=== PATIENT | male | born 2005 | race Hispanic/Latino ===

== ENCOUNTER 2024-06-06 21:44 | Emergency (ER) | payer SELFPAY ==
[~2024-06-06] VITALS: Ht 162.6 cm; Wt 62.0 kg
[2024-06-06 22:00] VITALS: BP 121/54
[2024-06-06] MEDS ORDERED: DOXYCYCLINE HYCLATE 100 MG/CAP PO ONE (22:35)
[2024-06-06] MEDS ORDERED: DICLOFENAC SODIUM 75 MG/TAB PO ONE (22:35)
[2024-06-06] MEDS ORDERED: VIBRAMYCIN100 M2 PO (22:39)
[2024-06-06] MEDS ORDERED: traMADol HCL 50 MG/TAB PO ONE (22:40)
== END 2024-06-06 23:07 | disposition home or self-care (01) | DRG 728 ==
LOC: ED 21:44
DX: N45.1 Epididymitis (principal)

== ENCOUNTER 2024-06-10 13:51 | Observation (INO) | payer SELFPAY ==
[2024-06-10] VITALS (16 sets, daily range): BP systolic 110–134; BP diastolic 47–65
[~2024-06-10] VITALS: Ht 162.6 cm; Wt 54.0 kg
[~2024-06-10 13:51] MED LIST: VIBRAMYCIN100 M2 PO
--- NOTE | 2024-06-10 14:01 | NUR ---
PT WALKED BACK TO ER TRIAGE ROOM, PT PLACED BACK IN THE LOBBY UNTIL A ROOM BECOMES AVAILABLE
[2024-06-10] MEDS ORDERED: LIDOcaine HCl 1% (Local Anesth.) 20 ML VIAL IM STA (14:18)
[2024-06-10] MEDS ORDERED: SODIUM CHLORIDE 0.9% 1,000 ML IV ONE (14:20)
[2024-06-10] MEDS ORDERED: KETOROLAC TROMETHAMINE 30 MG/ML SDV IV ONE (14:20)
[2024-06-10] MEDS ORDERED: ONDANSETRON HCl 4 MG/2 ML SDV IV ONE (14:20)
[2024-06-10] MEDS ORDERED: MORPHINE SULFATE 4 MG/ML VIAL IV ONE (14:20)
[2024-06-10] MEDS ORDERED: cefTRIAXone SODIUM 1 GM/VIAL SDV IM ONE (14:20)
[2024-06-10] MEDS ORDERED: AZITHROMYCIN 250 MG/TAB PO ONE (14:25)
[2024-06-10 14:44] LABS: BASO% 0.6 % (0-3); EOS% 0.9 % (0-8); HEMATOCRIT 47.9 % (39.0-50.0); HEMOGLOBIN 16.3 g/dl (14.0-18.0); IMMATURE GRANULOCYTES 0.2 % (0.0-5.0); LYMPH% 22.9 % (15-41); MEAN CELL VOLUME 86.9 fL CALC (80.0-100.0); MEAN CORPUSCULAR HGB 29.6 pG CALC (26.0-32.0); MONO% 9.1 % (2-13); NEUT# 6.84 thou/uL (1.82-7.42); NEUT% 66.3 % (42-76); RED BLOOD COUNT 5.51 mill/uL (4.70-6.10)
[2024-06-10 14:51] LABS: ALBUMIN 5.4 g/dL (3.2-5.0); BILIRUBIN, TOTAL 0.9 mg/dL (0.2-1.3); CREATININE 0.9 mg/dL (0.7-1.3); POTASSIUM 3.7 mmol/l (3.5-5.1); TOTAL PROTEIN 9.3 g/dL (6.3-8.2)
[2024-06-10] MEDS ORDERED: LACTATED RINGER'S 1,000 ML BAG IV ONE (14:55)
[2024-06-10] MEDS ORDERED: PROPOFOL 200 MG/20 ML VIAL IV ONE (14:55)
[2024-06-10] MEDS ORDERED: GLYCOPYRROLATE 0.2 MG/ML IV ONE (14:55)
[2024-06-10] MEDS ORDERED: MIDAZOLAM HCL 2 MG/2 ML VIAL IV ONE (14:55)
[2024-06-10] MEDS ORDERED: LIDOCAINE HCL 2% 2ML SDV IV ONE (14:55)
[2024-06-10] MEDS ORDERED: ACETAMINOPHEN 1,000 MG/100 ML VIAL IV ONE (14:55)
--- NOTE | 2024-06-10 14:59 | NUR ---
PTMEDICATED PER EMAR TOLERATED WELL NO ADVERSE REACTION NOTED.
[2024-06-10] MEDS ORDERED: MAGNESIUM HYDROXIDE 30 ML UDC PO PRN (15:50)
[2024-06-10] MEDS ORDERED: SODIUM CHLORIDE 0.9% 1,000 ML IV PRN (15:50)
[2024-06-10] MEDS ORDERED: HYDROmorphone HCL 2 MG/AMP IV PRN ×2 (15:50→20:05)
[2024-06-10] MEDS ORDERED: ACETAMINOPHEN 325 MG/TAB PO PRN (15:50)
--- NOTE | 2024-06-10 16:40 | NUR ---
REASSESSMENT OF PT, PAIN 0/10, NO DISTRESS NOTED, FAMILY MEMBER AT BEDSIDE.
--- NOTE | 2024-06-10 17:12 | NUR ---
PT STATES "I'M SCARED OF SURGERY" ADVISED PT HE'S IN GOOD HANDS AND WILL TAKE GOOD CARE OF HIM. PT OFF TO SURGERY IN STABLE CONDITION ACCOMPANIED BY OR TEAM AND HIS GIRL FRIEND.
[2024-06-10] MEDS ORDERED: LACTATED RINGER'S 1,000 ML IV ONE (17:18)
[2024-06-10] MEDS ORDERED: SODIUM CHLORIDE 1,000 ML BTL IR ONE (17:39)
[2024-06-10] MEDS ORDERED: BUPIVACAINE HCL PF 0.5 % 50 MG/10 ML SDV ONE (17:39)
[2024-06-10] MEDS ORDERED: STERILE WATER FOR IRRIGATION 1,000 ML BTL IR ONE (17:39)
[2024-06-10] MEDS ORDERED: DiphenhydrAMINE HCL 50 MG/ML SDV ONE (19:26)
--- NOTE | 2024-06-10 19:48 | NUR ---
PT ARRIVED TO [facility] FROM OR NO DISTRESS NOTED. NURSE TO NURSE REPORT RECEIVED AT BEDSIDE. FAMILY AT BEDSIDE.
[2024-06-10] MEDS ORDERED: oxyCODONE 5MG/ ACETAMINOPHEN 325MG TAB PO PRN ×2 (20:00)
[2024-06-10] MEDS ORDERED: LACTATED RINGER'S 1,000 ML IV PRN (20:00)
--- NOTE | 2024-06-10 21:35 | NUR ---
PT HELPED TO RESTROOM WITH MINIMAL ASSISTANCE. WOUND DRESSING INTACT WITH SMALL AMOUNT OF DRAINAGE NOTED ALREADY OUTLINED. NEW MESH PANTIES PLACED. PT STATED NOT HAVING ANY PAIN AT THIS TIME. CALL LIGHT INSTRUCTIONS PROVIDED. GIRLFRIEND STAYING THE NIGHT WITH PT.
--- NOTE | 2024-06-11 00:15 | NUR ---
PT RESTING IN BED. NURSE ASSISTED PT TO RESTROOM BUT WAS NOT ABLE TO URINE AT THIS TIME. SCDS PLACED BACK ON AFTER RETURNING TO BED. PT REPORTS NO PAIN. DRESSING IN PLACE NO NEW DRAINAGE NOTED. IV FLUIDS ONGOING. PT TOLERATED ORAL INTAKE WITHOUT NAUSE OR VOMITING. CALL LIGHT WITHIN REACH.
[2024-06-11 04:00] VITALS: BP 104/42
--- NOTE | 2024-06-11 04:16 | NUR ---
PT SLEEPING NO DISTRESS NOTED ON EXAM. PT STILL NOT REPORTING ANY PAIN AT THIS TIME. DRESSING INPLACE. CALL LIGHT WITHIN REACH. PLAN OF CARE ONGOING.
[2024-06-11 05:58] LABS: BASO% 0.1 % (0-3); IMMATURE GRANULOCYTES 0.2 % (0.0-5.0); LYMPH% 7.6 % (15-41); MEAN CELL VOLUME 88.5 fL CALC (80.0-100.0); MEAN CORPUSCULAR HGB 30.5 pG CALC (26.0-32.0); MEAN CORPUSCULAR HGB CONC 34.5 g/dL CAL (32.0-36.0); MONO% 2.4 % (2-13); NEUT# 8.43 thou/uL (1.82-7.42); NEUT% 89.7 % (42-76); RED BLOOD COUNT 4.26 mill/uL (4.70-6.10)
[2024-06-11 06:08] LABS: HEMATOCRIT 37.7 % (39.0-50.0)
[2024-06-11 06:19] LABS: BILIRUBIN, TOTAL 0.7 mg/dL (0.2-1.3); CREATININE 0.7 mg/dL (0.7-1.3)
[2024-06-11 06:27] LABS: ALBUMIN 3.8 g/dL (3.2-5.0); POTASSIUM 4.5 mmol/l (3.5-5.1); TOTAL PROTEIN 6.6 g/dL (6.3-8.2)
[2024-06-11 08:32] VITALS: BP 106/46
[2024-06-11 11:44] LABS: URINE BILIRUBIN - DIPSTICK Negative (NEGATIVE); URINE BLOOD DIPSTICK Negative (NEGATIVE); URINE GLUCOSE - DIPSTICK Negative (NEGATIVE); URINE KETONE Negative (NEGATIVE); URINE LEUK ESTERASE Negative (NEGATIVE); URINE NITRITE - DIPSTICK Negative (Negative); URINE PROTEIN - DIPSTICK Negative (NEG-TRACE); URINE UROBILINOGEN - DIPSTICK 0.2 E.U./dL (0.2)
[2024-06-11 11:46] LABS: URINE COLOR Yellow
--- NOTE | 2024-06-11 12:15 | NUR ---
EDITH DRAINED REMOVED PER ORDERS THIS MORNING. INCISION SITE CLEANSED WITH NEW DRESSING APPLIED. PAIN MEDICATION ADMINISTERED.
[2024-06-11] MEDS ORDERED: PERCOCET 5/325M1 TAB PO (13:08)
--- NOTE | 2024-06-11 14:43 | NUR ---
Patient discharged home. Dressing changed and demostrated to significant other. Discussed and provided discharge paperwork about medications, follow up appointments.
== END 2024-06-11 14:39 | disposition home or self-care (01) | DRG 712 ==
LOC: ED 13:51 → ED-I 15:36 → ED 15:45 → MS2 15:46
PROVIDERS: Nurse Practitioner; Nurse Practitioner Family; ADMIT Internal Medicine; ATTEND Internal Medicine
PROC: 0VTB0ZZ Resection of Left Testis, Open Approach (ICD-10-PCS; principal; 2024-06-10)
DX: N44.00 Torsion of testis, unspecified (principal); Z20.822 Contact with and (suspected) exposure to COVID-19
CPT/HCPCS: G0378; J0131; J0696; J1100; J1200; J1596; J2405

== ENCOUNTER 2024-06-27 11:13 | Emergency (ER) | payer SELFPAY ==
[2024-06-27] VITALS (10 sets, daily range): BP systolic 93–124; BP diastolic 38–58
[~2024-06-27] VITALS: Ht 162.6 cm; Wt 54.0 kg
[~2024-06-27 11:13] MED LIST changes: +PERCOCET 5/325M1 TAB PO
[2024-06-27 13:10] LABS: URINE BILIRUBIN - DIPSTICK Negative (NEGATIVE); URINE BLOOD DIPSTICK Negative (NEGATIVE); URINE GLUCOSE - DIPSTICK Negative (NEGATIVE); URINE KETONE Negative (NEGATIVE); URINE LEUK ESTERASE Negative (NEGATIVE); URINE NITRITE - DIPSTICK Negative (Negative); URINE PH 5.5 (4.5-8.0); URINE PROTEIN - DIPSTICK Negative (NEG-TRACE); URINE SPECIFIC GRAVITY 1.025; URINE UROBILINOGEN - DIPSTICK 0.2 E.U./dL (0.2)
[2024-06-27 13:21] LABS: URINE COLOR Yellow
== END 2024-06-27 13:47 | disposition home or self-care (01) | DRG 951 ==
LOC: ED 11:13
PROVIDERS: Nurse Practitioner
DX: Z09 Encounter for follow-up examination after completed treatment for conditions other than malignant neoplasm (principal); Z90.79 Acquired absence of other genital organ(s)